=== PATIENT | male | born 1995 | race Caucasian/White ===

== ENCOUNTER 2018-02-23 10:38 | Emergency (ER) | payer SELFPAY ==
[2018-02-23 10:40] VITALS: BP 145/85; PULSE 69; RESP 17; TEMP 36.4; O2SAT 100
--- NOTE | 2018-02-23 10:55 | CT_ITS ---
STUDY: CT BRAIN WITHOUT CONTRAST REASON FOR EXAM: Male, 22 years old. Headaches. History of seizures. RADIATION DOSAGE (If Supplied By Facility): CTDIvol = ( 44.99 ) mGy, DLP = ( 812.98 ) mGycm TECHNIQUE: Transaxial CT imaging of the brain was performed without administration of intravenous contrast material. Individualized dose optimization techniques were used for this CT. COMPARISON: None. FINDINGS: Normal soft tissue structures. Normal calvarium. Normal size ventricles and extra-axial spaces for the patient's age. Normal white matter tracts of the cerebral hemispheres. Normal basal ganglia and thalami. Normal brainstem. Normal cerebellum. There is no intracranial hemorrhage. There are no findings of an acute ischemic infarction. Normal visualized paranasal sinuses. CT/Brain/Head without Contrast IMPRESSION: Normal unenhanced CT scan of the brain. Electronically Signed: David White MD at 11:38 EST Tel [phone], Service support ,
--- NOTE | 2018-02-23 10:59 | ED.DCSUM_ITS ---
- ER Visit Summary Date of Service: 02/23/18 Chief Complaint: Headache History of Present Illness: The patient is a 22 M who presents with he describes as a migraine. He has never been formally diagnosed with migraines. He has been getting increasing headaches over the past year. His headache today start ed gradually this morning and has gotten worse. Associated with photophobia. He tried Tylenol and Excedrin, but they did not help. He also reports that he has been having shaking episodes which he describes as seizures over the past year. He has not been evaluated for this either. He has not had any seizure activity for weeks. No other associated symptoms. No fevers. No significant past medical history. Physical Examination: Afebrile and vital signs unremarkable except blood pressure 145/85. The patient is alert and oriented. No acute distress. Sitting in a dark room. HEENT exam unremarkable. Cranial nerves grossly intact. Neck shows good range of motion with no meningeal signs. Heart regular. Lungs clear. Extremities normal inspection. Good strength and sensation. No focal or lateralizing neurologic arise grossly. Skin appears normal. Test Results: CT brain pending. Emergency Department Course and Treatment: I suspect migraine or some other headache variant. He has not been evaluated for this. I will check a CT brain. He was treated with Compazine and Benadryl. Will reassess. He may also need Toradol pending a normal CT. I advised the patient that he will need outpatient follow-up for other evaluation and regular preventative medical care. CT showed no acute findings. On reevaluation, pain is 2 out of 10. Patient will be discharged to follow-up with primary care for recheck and for further management of his ongoing issues. Treatment Plan: As above Disposition: Discharge Impression: 1. Acute cephalgia This note was generated with [employer] dictation software. It may contain incorrect words, spelling, and punctuation that were not noted in review of the chart prior to signing ED Disposition - Plan for ED Patient: Chief Complaint: Headache Referrals: Care Physician,No Primary [Primary Care Provider] -
[2018-02-23] MEDS: proCHLORPERazine 10 MG/2 ML Vial IV (11:12)
[2018-02-23] MEDS: DiphenhydrAMINE 50 MG/ML Syringe IV (11:12)
--- NOTE | 2018-02-23 11:47 | ED.DEP ---
ED Disposition - Plan for ED Patient: Chief Complaint: Headache Instructions: ED Cephalgia Unspecified Referrals: Marcos Ariza MD [STAFF PHYSICIAN] -
--- NOTE | 2018-02-23 12:04 | CM.ED ---
Social Work Note Face to face with pt to discuss SP status. Pt is accompanied by significant other. Pt reports to be working and denies having insurance. States that he will not become eligible for it through work either. Inquire if he has applied for Medicaid and the pt states that he has not. Unable to confirm if he made over $750/month. Encourage the pt to complete a Medicaid application and submit to [employer] for potential medical insurance. Also provide with list of PCP's as the pt is not established with a family doctor for f/u. Pt reports financial stability and claims to be able to provide necessities for self. Understanding expressed, and pt denies further needs. Renuka Sarabia, DEVELOPMENT ANALYST, [facility]
[2018-02-23 12:08] VITALS: BP 124/80; PULSE 86; RESP 16; O2SAT 98
--- NOTE | 2018-02-23 12:10 | ED.RN ---
REVIEWED D/C INSTRUCTIONS, FOLLOW UP CARE, AND S/S THAT WOULD WARRANT A RETURN TO THE ED WITH PT. PT VERBALIZED AN UNDERSTANDING AND DENIES FURTHER QUESTIONS FOR THIS RN. PT SKIN P/W/D, RESP EVEN AND UNLABORED, PT A&O X 3, NO DISTRESS NOTED. PT AMBULATED OUT OF ED, GAIT STEADY.
--- OUTSIDE RECORDS SUMMARY | 2018-05-27 15:45 | XMS RPT_ITS ---
:1995 Author Organization [facility] Care Team Providers Name Role Phone Beny Rosenbaum Attending Unavailable Primay Care Physicia, No Primary Care Unavailable PROBLEMS PROBLEMS No Problem Records FoundPROCEDURES PROCEDURES No Procedure Records FoundRESULTS RESULTS DISCHARGE INSTRUCTION Observed: 02/23/2018 Status: F Source: [place] 3:42 PM [facility] REPOSITORY [facility] Medical Records Department [address] [place] [address] Discharge Instruction 02/23/18 1147 MR#: [id number] Acct: [id number] Name: JUAN PLATA Rep #: [id number] : 1995 22 From: Beny Rosenbaum MD PCP: Care Physician, No Primary Status: DEP ER ED Disposition - Plan for ED Patient: Chief Complaint: Headache Instructions: ED Cephalgia Unspecified Referrals: Marcos Ariza MD [STAFF PHYSICIAN] - What to do if you have Problems For any increased pain, shortness of breath, bleeding, nausea or vomiting, chest pain, or any unexpected problems, contact your Primary Care Provider. Call [facility] ([phone]) or report to the closest Emergency Room. Call 911 if necessary. 02/23/18 1542 <Electronically signed by Beny Rosenbaum MD> Date Beny Rosenbaum MD Cosigner Signature (If Indicated): Date CC: No Primary Care Physician EMERGENCY DEPARTMENT Observed: 02/23/2018 Status: F Source: [place] 3:42 PM [facility] REPOSITORY [facility] Medical Records Department [address] [place] [address] Emergency Department Summary 02/23/18 1057 MR#: [id number] Acct: [id number] Name: JUAN PLATA Rep #: [id number] : 1995 22 From: Beny Rosenbaum MD PCP: Care Physician, No Primary Status: DEP ER - ER Visit Summary Date of Service: 02/23/18 Chief Complaint: Headache History of Present Illness: The patient is a 22 M who presents with he describes as a migraine. He has never been formally diagnosed with migraines. He has been getting increasing headaches over the past year. His headache today started gradually this morning and has gotten worse. Associated with photophobia. He tried Tylenol and Excedrin, but they did not help. He also reports that he has been having shaking episodes which he describes as seizures over the past year. He has not been evaluated for this either. He has not had any seizure activity for weeks. No other associated symptoms. No fevers. No significant past medical history. Physical Examination: Afebrile and vital signs unremarkable except blood pressure 145/85. The patient is alert and oriented. No acute distress. Sitting in a dark room. HEENT exam unremarkable. Cranial nerves grossly intact. Neck shows good range of motion with no meningeal signs. Heart regular. Lungs clear. Extremities normal inspection. Good strength and sensation. No focal or lateralizing neurologic arise grossly. Skin appears normal. Test Results: CT brain pending. Emergency Department Course and Treatment: I suspect migraine or some other headache variant. He has not been evaluated for this. I will check a CT brain. He was treated with Compazine and Benadryl. Will reassess. He may also need Toradol pending a normal CT. I advised the patient that he will need outpatient follow-up for other evaluation and regular preventative medical care. CT showed no acute findings. On reevaluation, pain is 2 out of 10. Patient will be discharged to follow-up with primary care for recheck and for further management of his ongoing issues. Treatment Plan: As above Disposition: Discharge Impression: 1. Acute cephalgia This note was generated with [employer] dictation software. It may contain incorrect words, spelling, and punctuation that were not noted in review of the chart prior to signing ED Disposition - Plan for ED Patient: Chief Complaint: Headache Referrals: Care Physician,No Primary [Primary Care Provider] - What to do if you have Problems For any increased pain, shortness of breath, bleeding, nausea or vomiting, chest pain, or any unexpected problems, contact your Primary Care Provider. Call [facility] ([phone]) or report to the closest Emergency Room. Call 911 if necessary. 02/23/18 1542 <Electronically signed by Beny Rosenbaum MD> Date Beny Rosenbaum MD Cosigner Signature (If Indicated): Date CC: No Primary Care Physician BRAIN/HEAD WITHOUT Observed: 02/23/2018 Status: F Source: [place] CONTRAST 10:56 AM [facility] REPOSITORY [facility] Imaging Services [address] [place] [address] Brain/Head without Contrast MR#: [id number] Acct: [id number] Name: JUAN PLATA Rep #: [id number] : 1995 M 22 From: David White MD PCP: Care Physician, No Primary Status: REG ER Study: Brain/Head without Contrast Date of Exam: 02/23/18 Exam# [id number] Ordering Dr: Beny Rosenbaum MD STUDY: CT BRAIN WITHOUT CONTRAST REASON FOR EXAM: Male, 22 years old. Headaches. History of seizures. RADIATION DOSAGE (If Supplied By Facility): CTDIvol = ( 44.99 ) mGy, DLP = ( 812.98 ) mGycm TECHNIQUE: Transaxial CT imaging of the brain was performed without administration of intravenous contrast material. Individualized dose optimization techniques were used for this CT. COMPARISON: None. FINDINGS: Normal soft tissue structures. Normal calvarium. Normal size ventricles and extra-axial spaces for the patient's age. Normal white matter tracts of the cerebral hemispheres. Normal basal ganglia and thalami. Normal brainstem. Normal cerebellum. There is no intracranial hemorrhage. There are no findings of an acute ischemic infarction. Normal visualized paranasal sinuses. CT/Brain/Head without Contrast IMPRESSION: Normal unenhanced CT scan of the brain. Electronically Signed: David White MD at 11:38 EST Tel [phone], Service support , CC: No Primary Care Physician; Beny Rosenbaum MD Fruit Washer: Signed PROGRESS Observed: 09/07/2017 Status: COMPLETED Source: [place] 8:52 AM [facility] REPOSITORY HNO ID: [id number] Author: Gifty (Heather) Aman Service: (none) Author Type: Nurse Practitioner Type: Progress Notes Filed: 09/07/2017 9:36 AM Note Text: Subjective The history is provided by the patient. No speech/language therapist was used. Back Pain Pertinent negatives include no fever, no headaches and no tingling. HPI Juan Plata is a 22 year old male who presents today for CC of lower back pain on right. This started 2 months ago, comes and goes. He states that yesterday did some heavy lifting and is worse today. Symptoms are worsened by movement. He has tried no treatment or medications. 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 BP 110/82 Pulse 68 Temp 36.6 ?C (97.8 ?F) (Tympanic) Resp 16 Wt 67.6 kg (149 lb) ALLERGIES No Known Allergies There is no problem list on file for this patient. No family history on file. Social History Marital status: Single Spouse name: Years of education: Number of children: Social History Main Topics Smoking status: Former Smoker Packs/day: 0.00 Years: 0.00 Smokeless tobacco: Never Used Review of Systems Constitutional: Negative for chills, fever and malaise/fatigue. Musculoskeletal: Positive for back pain. Negative for joint pain and myalgias. Skin: Negative for rash. Neurological: Negative for tingling and headaches. Objective Physical Exam Constitutional: He is oriented to person, place, and time and well-developed, well-nourished, and in no distress. No distress. HENT: Head: Normocephalic and atraumatic. Eyes: Conjunctivae and EOM are normal. Pupils are equal, round, and reactive to light. Neck: Normal range of motion. Neck supple. Pulmonary/Chest: Effort normal. Abdominal: There is no CVA tenderness. Musculoskeletal: Lumbar back: He exhibits decreased range of motion (flexion), tenderness and pain. He exhibits no bony tenderness, no swelling, no edema, no deformity, no laceration, no spasm and normal pulse. Back: Neurological: He is alert and oriented to person, place, and time. Skin: Skin is warm and dry. Psychiatric: Affect normal. Nursing note and vitals reviewed. ASSESSMENT/PLAN: 1. Acute right-sided low back pain without sciatica - ICD9: 724.2, ICD10: M54.5 Mechanical low back pain - Ice for localized tenderness - Warm moist heat for 20 min three times a day - NSAIDS- see orders - Patient given instructions back care exercise program - Schedule followup for recheck in 2 weeks - TYLENOL PM ORAL - NAPROXEN 500 MG TABLET Diagnosis and treatment plan were discussed and questions were answered to the patient's satisfaction. Pt acknowledged understanding of concepts and follow up plan. Specific signs and symptoms that would indicate the need for higher level of care were discussed in detail warranting prompt ER evaluation. Gifty Newton APRN.[employer] [facility]OV Observed: 09/07/2017 Status: COMPLETED Source: [place] 8:45 AM [facility] REPOSITORY [facility] JUAN PLATA ([id number]) 1995 M Date Time Provider Department 09/07/17 8:45 AM GIFTY NEWTON (HEATHER) [facility] During your visit today, we recorded the following information about you: Temperature Pulse Respiration Blood pressure 97.8 degrees 68/minute 16/minute 110/82 Weight 67.6 kg Gifty Newton APRN.CNP 09/07/2017 8:48 AM Signed ASSESSMENT/PLAN: 1. Acute right-sided low back pain without sciatica - ICD9: 724.2, ICD10: M54.5 Mechanical low back pain - Ice for localized tenderness - Warm moist heat for 20 min three times a day - NSAIDS- see orders - Patient given instructions back care exercise program - Follow up in with primary care provider or sooner if symptoms persist or worsen - TYLENOL PM ORAL - NAPROXEN 500 MG TABLET Gifty Newton APRN.CNP 09/07/2017 9:36 AM Signed Subjective The history is provided by the patient. No speech/language therapist was used. Back Pain Pertinent negatives include no fever, no headaches and no tingling. HPI Juan Plata is a 22 year old male who presents today for CC of lower back pain on right. This started 2 months ago, comes and goes. He states that yesterday did some heavy lifting and is worse today. Symptoms are worsened by movement. He has tried no treatment or medications. 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 BP 110/82 Pulse 68 Temp 36.6 ?C (97.8 ?F) (Tympanic) Resp 16 Wt 67.6 kg (149 lb) ALLERGIES No Known Allergies There is no problem list on file for this patient. No family history on file. Social History Marital status: Single Spouse name: Years of education: Number of children: Social History Main Topics Smoking status: Former Smoker Packs/day: 0.00 Years: 0.00 Smokeless tobacco: Never Used Review of Systems Constitutional: Negative for chills, fever and malaise/fatigue. Musculoskeletal: Positive for back pain. Negative for joint pain and myalgias. Skin: Negative for rash. Neurological: Negative for tingling and headaches. Objective Physical Exam Constitutional: He is oriented to person, place, and time and well-developed, well-nourished, and in no distress. No distress. HENT: Head: Normocephalic and atraumatic. Eyes: Conjunctivae and EOM are normal. Pupils are equal, round, and reactive to light. Neck: Normal range of motion. Neck supple. Pulmonary/Chest: Effort normal. Abdominal: There is no CVA tenderness. Musculoskeletal: Lumbar back: He exhibits decreased range of motion (flexion), tenderness and pain. He exhibits no bony tenderness, no swelling, no edema, no deformity, no laceration, no spasm and normal pulse. Back: Neurological: He is alert and oriented to person, place, and time. Skin: Skin is warm and dry. Psychiatric: Affect normal. Nursing note and vitals reviewed. ASSESSMENT/PLAN: 1. Acute right-sided low back pain without sciatica - ICD9: 724.2, ICD10: M54.5 Mechanical low back pain - Ice for localized tenderness - Warm moist heat for 20 min three times a day - NSAIDS- see orders - Patient given instructions back care exercise program - Schedule followup for recheck in 2 weeks - TYLENOL PM ORAL - NAPROXEN 500 MG TABLET Diagnosis and treatment plan were discussed and questions were answered to the patient's satisfaction. Pt acknowledged understanding of concepts and follow up plan. Specific signs and symptoms that would indicate the need for higher level of care were discussed in detail warranting prompt ER evaluation. Gifty Newton APRN.[facility] Referring Provider: SELF [200] Allergies As of Date: 09/07/2017 (No Known Allergies) Date Reviewed: 09/07/2017 Reviewed by: Gifty FlowersEquipment Planner) Aman - Fully Assessed Reason for Visit: Back Pain [12] Cmt: pain on low right side of back X2 mths, more pain with certain movements Primary Visit Diagnosis:Acute right-sided low back pain without sciatica [M54.5] Order(s):naproxen (NAPROSYN) 500 mg tabletTake 1 tablet by mouth twice daily as needed (for pain/inflammation). Take with food.Disp: 30 tabletRfl: 0 Prescriptions as of 09/07/2017 Sig: EXCEDRIN MIGRAINE ORAL Take by mouth. NAPROXEN 500 MG TABLET Take 1 tablet by mouth twice * ADVIL PM ORAL Take by mouth. PANTOPRAZOLE 20 MG TABLET,DEL* Take 1 tablet by mouth twice * Patient not taking: Reported on 09/07/2017 CYCLOBENZAPRINE 10 MG TABLET Take 1 tablet by mouth three * Problem List As Of Date: 09/07/2017 (None) Other instructions from your clinician: ASSESSMENT/PLAN: 1. Acute right-sided low back pain without sciatica - ICD9: 724.2, ICD10: M54.5 Mechanical low back pain - Ice for localized tenderness - Warm moist heat for 20 min three times a day - NSAIDS- see orders - Patient given instructions back care exercise program - Follow up in with primary care provider or sooner if symptoms persist or worsen - TYLENOL PM ORAL - NAPROXEN 500 MG TABLET Prescriptions ordered this encounter Disp Refills Start End NAPROXEN 500 MG TABLET 30 t* 0 09/07/2017 Route: ORAL Sig: Take 1 tablet by mouth twice daily as needed (for pain/inflammation). Take with food. Medications Discontinued During This Encounter acetaminophen/diphenhydramine (TYLEN* 09/07/2017 Class: Historical Med Route: ORAL Sig: Take by mouth. Disc: Course of therapy completed Encounter Status:Closed by GIFTY NEWTON CNP on 09/07/17 ALLERGIES ALLERGIES DATE TYPE / CODE NAME / CODE REACTION SEVERITY SOURCE 02/23/2018 Drug No Known Unknown [facility] Allergy/416 Allergies/[id number] [facility] [id number](SNOM 0388(RXNORM) Repository ED CT) Drug NO KNOWN [facility] Class/29439 ALLERGIES [facility] 1003(SNOMED Repository CT) ENCOUNTERS ENCOUNTERS ADMIT/DISCHARGE ACCOUNT ADMITTING ENCOUNTER LOCATION SOURCE NUMBER CLASS 02/23/2018/02/24/20 [id number] Emergency [address] ing:ED Repository 09/07/2017/09/10/19 [id number] Ambulatory [address] Repository PAYERS PAYERS ENCOUNTER GUARANTOR PAYER SUBSCRIBER SOURCE 02/23/2018 JUAN Bashir Primary NOT GIVENUNK [place] [id number] 03/09 Insurance:SELF PAY [facility], Number: Effective Repository de [id number]: Date:2018-02-23 ()
== END 2018-02-23 12:10 | disposition home or self-care (01) ==
PROVIDERS: Emergency Provider Emergency Medicine
DX: R51 Headache (principal)
CPT/HCPCS: 70450; 96374; 96375; 99283; J7050; A4216